=== PATIENT | female | born 1945 | race Caucasian/White ===

== ENCOUNTER 2018-09-05 15:13 | Inpatient (IN) | payer MEDICARE, MEDICAID ==
[2018-09-05 16:09] LABS: % BASOPHILS 0.4 % (0.0-2.0); % EOSINOPHILS 1.5 % (0.0-5.0); % LYMPHOCYTES 16.2 % (20.0-50.0); % MONOCYTES 6.6 % (2.0-10.0); % NEUTROPHILS 75.3 % (40.0-80.0); EOSINOPHILE ABSOLUTE 0.1 Th/cmm (0.1-0.4); HEMATOCRIT 37.1 % (41.0-60); LYMPHOCYTE ABSOLUTE 1.5 Th/cmm (1.5-3.0); MEAN CELL VOLUME 84.6 fl (81-100); MEAN CORPUSCULAR HEMOGLOBIN 27.3 pg (27.0-31.0); MEAN CORPUSCULAR HGB CONC 32.2 pg (28.0-36.0); MEAN PLATELET VOLUME 6.8 fl; MONOCYTE ABSOLUTE 0.6 Th/cmm (0.3-1.0); NEUTROPHILE ABSOLUTE 7.1 Th/cmm (1.8-8.0); PLATELET COUNT 304 Th/cmm (150-400); RED BLOOD COUNT 4.39 Mil/cmm (3.80-5.20); RED CELL DISTRIBUTION WIDTH 12.3 % (11.5-20.0); WHITE BLOOD COUNT 9.3 Th/cmm (4.8-10.8)
[2018-09-05 16:20] LABS: INR 0.93 (0.5-1.4); PROTHROMBIN TIME (TEST) 9.7 SECONDS (9.5-11.5)
[2018-09-05 16:28] LABS: ALB/GLOB RATIO 1.1 (1.0-1.8); ALKALINE PHOSPHATASE 129 U/L (34-104); ANION GAP 14.5 (7.0-16.0); BILIRUBIN,TOTAL 0.2 mg/dL (0.3-1.0); BUN - UREA NITROGEN 16 mg/dL (7-25); CALCIUM SERUM 8.9 mg/dL (8.6-10.3); CARBON DIOXIDE 26.6 mEq/L (21.0-31.0); CHLORIDE 94 mEq/L (98-107); CREATININE - SERUM 0.6 mg/dL (0.6-1.2); GLUCOSE 120 mg/dL (70-105); POTASSIUM SERUM 4.1 mEq/L (3.5-5.1); SGOT 14 U/L (13-39); SGPT/ALT 15 U/L (7-52); SODIUM SERUM 131 mEq/L (136-145); TOTAL PROTEIN,SERUM 7.5 gm/dL (6.0-8.3)
[2018-09-05] MEDS ORDERED: Haloperidol Lactate 5 mg/mL 1mL Vial IVP ONE (16:55)
[2018-09-05] MEDS ORDERED: Haloperidol Lactate 5 mg/mL 1mL Vial ONE (16:57)
[2018-09-05] MEDS ORDERED: Sodium Chloride 0.45% 500 ML IV ONE (17:25)
[2018-09-05 18:25] LABS: URINE SOURCE CATH
[2018-09-05 18:35] LABS: URINE BILIRUBIN NEGATIVE (NEGATIVE); URINE BLOOD NEGATIVE (NEGATIVE); URINE GLUCOSE (UA) NEGATIVE (NEGATIVE); URINE KETONE NEGATIVE (NEGATIVE); URINE LEUKOCYTE ESTERASE MODERATE (NEGATIVE); URINE MICROSCOPIC INDICATED? YES; URINE NITRATE POSITIVE (NEGATIVE); URINE PH 6.5 (4.6 - 8.0); URINE PROTEIN NEGATIVE (NEGATIVE); URINE UROBILINOGEN 0.2 E.U./dL (0.2 - 1.0)
[2018-09-05 18:57] LABS: URINE CLARITY CLOUDY (CLEAR); URINE COLOR YELLOW
[2018-09-05 18:59] LABS: URINE WBC 50-100 /hpf (0-5)
[2018-09-05 19:00] LABS: URINE BACTERIA MANY /hpf (NONE SEEN); URINE EPITHELIAL CELLS MODERATE /lpf (FEW)
--- NOTE | 2018-09-05 19:15 | ED Physician Chart ---
ED Chief Complaint/HPI - Patient Information Date Seen:: 09/05/18 Time Seen:: 15:44 Chief Complaint:: combative History of Present Illness:: this is a 73 yo female with a possible cva sent to the er for an evaluation for admission and verification of a stroke. Allergies:: Allergies Allergy/AdvReac Type Severity Reaction Status Date / Time No Known Allergies Allergy Verified 09/05/18 15:37 Vitals:: Vital Signs - 8 hr 09/05/18 15:38 Temp 96.8 F HR 66 RR 16 BP 163/72 O2 Sat % 96 Historian:: Medical Records Review:: Nurse's Note Reviewed, Old Chart Reviewed, Transfer documents Reviewed ED Review of Systems - Review of Systems General/Constitutional: No fever, No chills, No weight loss, No weakness, No diaphoresis, No edema, No loss of appetite, Other (this patient cannot give a review of systems.) Skin: No skin lesions, No rash, No bruising Head: No headache, No light-headedness Eyes: No loss of vision, No pain, No diplopia ENT: No earache, No nasal drainage, No sore throat, No tinnitus Neck: No neck pain, No swelling, No thyromegaly, No stiffness, No mass noted Cardio Vascular: No chest pain, No palpitations, No PND, No orthopnea, No edema Pulmonary: No SOB, No cough, No sputum, No wheezing GI: No nausea, No vomiting, No diarrhea, No pain, No melena, No hematochezia, No constipation, No hematemesis G/U: No dysuria, No frequency, No hematuria Musculoskeletal: No bone or joint pain, No back pain, No muscle pain Endocrine: No polyuria, No polydipsia Psychiatric: No prior psych history, No depression, No anxiety, No suicidal ideation Hematopoietic: No bruising, No lymphadenopathy Allergic/Immuno: No urticaria, No angioedema Neurological: No syncope, No focal symptoms, No weakness, No paresthesia, No headache, No seizure, No dizziness, No confusion, No vertigo ED Past Medical History - Past Medical History Obtainable: Yes Past Medical History: CVA/TIA, Dementia Family History: None Social History: Non Smoker, No Alcohol, No Drug Use, Care Facility Surgical History: None Psychiatricy History: Dementia Medication: Reviewed Family Medical History - Family Member Mother History Unknown: Yes ED Physical Exam - Physical Examination General/Constitutional: Awake, Well-developed, well-nourished, Alert, No distress, GCS 15, Non-toxic appearing, Ambulatory Other Gen/Cons comments:: this patient is combative and disoriented times four Head: Atraumatic Eyes: Lids, conjuctiva normal, PERRL, EOMI Skin: Nl inspection, No rash, No skin lesions, No ecchymosis, Well hydrated, No lymphadenopathy ENMT: External ears, nose nl, Nasal exam nl, Lips, teeth, gums nl Neck: Nontender, Full ROM w/o pain, No JVD, No nuchal rigidity, No bruit, No mass, No stridor Respiratory: Nl effort/Exclusion, Clear to Auscultation, No Wheeze/Rhonchi/Rales Cardio Vascular: RRR, No murmur, gallop, rubs, NL S1 S2 GI: No tenderness/rebounding/guarding, No organomegaly, No hernia, Normal BS's, Nondistended, No mass/bruits, No McBurney tenderness : No CVA tenderness Other comments:: incontinent of stool and urine Extremities: No tenderness or effusion, Full ROM, normal strength in all extremities, No edema, Normal digits & nails Neuro/Psych: Alert/oriented, DTR's symmetric, Normal sensory exam, Normal motor strength, Judgement/insight normal, Mood normal (combative and uncooperative), Normal gait, No focal deficits Misc: Normal back, No paraspinal tenderness ED Labs/Radiology/EKG Results - Lab Results Results: Laboratory Tests 09/05/18 09/05/18 09/05/18 15:40 15:40 15:40 WBC 9.3 RBC 4.39 Hgb 12.0 Hct 37.1 L MCV 84.6 MCH 27.3 MCHC Differential 32.2 RDW 12.3 Plt Count 304 MPV 6.8 Neutrophils % 75.3 Lymphocytes % 16.2 L Monocytes % 6.6 Eosinophils % 1.5 Basophils % 0.4 PT 9.7 INR 0.93 PTT (Actin FS) 28.0 Sodium 131 L Potassium 4.1 Chloride 94 L Carbon Dioxide 26.6 Anion Gap 14.5 BUN 16 Creatinine 0.6 Est GFR ( Amer) TNP Est GFR (Non-Af Amer) TNP BUN/Creatinine Ratio 26.7 Glucose 120 H Calcium 8.9 Total Bilirubin 0.2 L AST 14 ALT 15 Alkaline Phosphatase 129 H Troponin I Total Protein 7.5 Albumin 4.0 Globulin 3.5 Albumin/Globulin Ratio 1.1 TSH Urine Source Urine Color Urine Clarity Urine pH Ur Specific [place] Urine Protein Urine Glucose (UA) Urine Ketones Urine Blood Urine Nitrate Urine Bilirubin Urine Urobilinogen Ur Leukocyte Esterase Urine RBC Urine WBC Ur Epithelial Cells Urine Bacteria 09/05/18 09/05/18 09/05/18 15:40 15:40 18:00 WBC RBC Hgb Hct MCV MCH MCHC Differential RDW Plt Count MPV Neutrophils % Lymphocytes % Monocytes % Eosinophils % Basophils % PT INR PTT (Actin FS) Sodium Potassium Chloride Carbon Dioxide Anion Gap BUN Creatinine Est GFR ( Amer) Est GFR (Non-Af Amer) BUN/Creatinine Ratio Glucose Calcium Total Bilirubin AST ALT Alkaline Phosphatase Troponin I < 0.01 L Total Protein Albumin Globulin Albumin/Globulin Ratio TSH 2.01 Urine Source CATH Urine Color YELLOW Urine Clarity CLOUDY H Urine pH 6.5 Ur Specific [place] 1.015 Urine Protein NEGATIVE Urine Glucose (UA) NEGATIVE Urine Ketones NEGATIVE Urine Blood NEGATIVE Urine Nitrate POSITIVE H Urine Bilirubin NEGATIVE Urine Urobilinogen 0.2 Ur Leukocyte Esterase MODERATE H Urine RBC 2-5 Urine WBC 50-100 H Ur Epithelial Cells MODERATE Urine Bacteria MANY H - Radiology Results Results: chest x-ray = nad ED Assessment - Assessment General Assessment: urinary tract infection psychosis ED Septic Shock - . Is Septic Shock (SBP<90, OR Lactate>4 mmol\L) present?: No - <6hrs of presentation: Vital Signs: Vital Signs - 8 hr 09/05/18 15:38 Temp 96.8 F HR 66 RR 16 BP 163/72 O2 Sat % 96 ED Reassessment (Disposition) - Reassessment Reassessment Condition:: Unchanged - Diagnosis Diagnosis:: urinary tract infection psychosis - Patient Disposition Discharge/Transfer:: Acute Care w/in this hosp Admitted to:: Med/Surg Admitting Medical Physician:: John Corcoran Condition at Disposition:: Stable
[2018-09-05] MEDS ORDERED: Non-Formulary Item 1 EA (Acetaminophen [Acetaminophen Er] 650 MG) PO PRN (22:06)
[2018-09-05] MEDS ORDERED: Sodium Chloride 0.9% 1,000 ML IV SCH (22:15)
[2018-09-05] MEDS ORDERED: Magnesium Hydroxide (MOM) 30 mL UDC PO SCH (22:15)
[2018-09-05] MEDS ORDERED: cefTRIAXone 1 GM in Sodium Chloride 0.9% 50 ML IV SCH (22:15)
[2018-09-05] MEDS: Sodium Chloride 0.9% 1,000 ML IV SCH (23:19)
[2018-09-06 06:39] LABS: % BASOPHILS 0.5 % (0.0-2.0); % EOSINOPHILS 1.4 % (0.0-5.0); % LYMPHOCYTES 21.2 % (20.0-50.0); % MONOCYTES 7.6 % (2.0-10.0); % NEUTROPHILS 69.3 % (40.0-80.0); EOSINOPHILE ABSOLUTE 0.1 Th/cmm (0.1-0.4); HEMATOCRIT 35.5 % (41.0-60); HEMOGLOBIN 11.8 gm/dL (12-16); LYMPHOCYTE ABSOLUTE 1.7 Th/cmm (1.5-3.0); MEAN CELL VOLUME 85.3 fl (81-100); MEAN CORPUSCULAR HEMOGLOBIN 28.4 pg (27.0-31.0); MEAN CORPUSCULAR HGB CONC 33.3 pg (28.0-36.0); MEAN PLATELET VOLUME 6.7 fl; MONOCYTE ABSOLUTE 0.6 Th/cmm (0.3-1.0); NEUTROPHILE ABSOLUTE 5.7 Th/cmm (1.8-8.0); PLATELET COUNT 255 Th/cmm (150-400); RED BLOOD COUNT 4.16 Mil/cmm (3.80-5.20); RED CELL DISTRIBUTION WIDTH 12.1 % (11.5-20.0); WHITE BLOOD COUNT 8.1 Th/cmm (4.8-10.8)
[2018-09-06 06:55] LABS: ANION GAP 12.2 (7.0-16.0); BUN - UREA NITROGEN 11 mg/dL (7-25); CARBON DIOXIDE 24.9 mEq/L (21.0-31.0); CHLORIDE 98 mEq/L (98-107); GLUCOSE 99 mg/dL (70-105); POTASSIUM SERUM 4.1 mEq/L (3.5-5.1); SODIUM SERUM 131 mEq/L (136-145)
[2018-09-06 06:56] LABS: ALB/GLOB RATIO 1.2 (1.0-1.8); ALBUMIN 3.6 gm/dL (3.7-5.3); ALKALINE PHOSPHATASE 124 U/L (34-104); BILIRUBIN,TOTAL 0.2 mg/dL (0.3-1.0); CALCIUM SERUM 8.4 mg/dL (8.6-10.3); CREATININE - SERUM 0.5 mg/dL (0.6-1.2); SGOT 12 U/L (13-39); SGPT/ALT 12 U/L (7-52); TOTAL PROTEIN,SERUM 6.7 gm/dL (6.0-8.3)
--- NOTE | 2018-09-06 08:21 | Diagnostic Imaging Report ---
CT scan of the brain without intravenous contrast HISTORY: Stroke, CVA Total DLP equals 803 CTDI equals 41.1 Axial sections were obtained from the base of the skull to the vertex. There is prominence/enlargement of the ventricular system size. Associated enlargement of cerebral sulci and subarachnoid cisterns. Findings are consistent with changes of generalized cerebral atrophy. No acute parenchymal abnormalities. No acute cerebral hemorrhage. Hypodensity is seen within the supratentorial white matter regions without mass effect. The findings may be associated with chronic small vessel ischemic disease. No extra-axial masses or abnormal fluid collections. Fluid evident within the left mastoid air cells consistent with inflammatory change. Mild mucosal thickening seen within the left maxillary sinus. There is marked deviation of the nasal septum to the right side. IMPRESSION: 1. No acute abnormalities 2. Cerebral atrophy 3. Supratentorial white matter changes that may reflect chronic small vessel ischemic disease 4. Marked deviation of the nasal septum 5. Fluid within the left mastoid air cell regions consistent with inflammatory change. 6. Mild mucosal thickening within the left maxillary sinus
--- NOTE | 2018-09-06 08:27 | Diagnostic Imaging Report ---
Portable chest x-ray HISTORY: Pain The overall heart size is difficult to assess with portable technique in a poor inspiration. No acute focal pulmonary processes. No hilar or mediastinal abnormalities. Surgical changes noted about the right humeral shaft. IMPRESSION: 1. No acute pulmonary processes
[2018-09-06] MEDS ORDERED: CALCIUM CITRATE PO SCH (09:00)
[2018-09-06] MEDS ORDERED: VITAMIN D3 PO SCH (09:00)
[2018-09-06] MEDS ORDERED: [UNRECOGNIZED DRUG - OTHER] PO SCH (09:00)
[2018-09-06] MEDS: Multivitamin w/ Minerals Tab PO SCH (09:26)
[2018-09-06] MEDS: Calcium Carb/Vit D 500 mg/200 U Tab PO SCH ×3 (09:28→20:19)
[2018-09-06] MEDS: Sodium Chloride 0.9% 1,000 ML IV SCH (09:38)
--- NOTE | 2018-09-06 15:20 | History and Physical ---
History of Present Illness - HPI Chief Complaint: Increased in agitation HPI: Patient was send for evaluation of increased in agitation. During ER evaluation was found UTI . Vital Signs: Last Vital Signs Temp 96.8 F 09/06/18 12:00 Pulse 68 09/06/18 12:00 Resp 18 09/06/18 12:00 BP 135/84 09/06/18 12:00 Pulse Ox 97 09/06/18 12:00 Past Medical History Cardiovascular: Report: CAD Pulmonary: Report: No Pertinent Hx [employer]: Report: Dementia, TIA, Other (MR, CP) GI: Report: No Pertinent Hx Psych: Report: Other (MR) Musculoskeletal: Report: Muscle Atrophy, Other (Non ambulatory) Rheumatologic: Report: No pertinent Hx Infectious Disease: Report: No Pertinent Hx Renal/: Report: No Pertinent Hx Endocrine: Report: No Pertinent Hx Dermatology: Report: No Pertinent Hx Family Medical History - Family Member Mother History Unknown: Yes Ethnicity: Non- Living Status: Unknown Social History Smoke: No Alcohol: None Drugs: None Lives: Custodial Domestic Violence: Negative - Medications Home Medications: Home Medication Medication Instructions Recorded Type Acetaminophen [Acetaminophen ER] 650 mg PO Q4H PRN 09/05/18 History Bisacodyl [Dulcolax 10 Mg Supp] 10 mg RC Q96H PRN 09/05/18 History Calcium Citrate/Vitamin D3 1 tab PO TID 09/05/18 History [Calcium Citrate-Vit D3 Caplet] Carbamazepine 200 mg PO BID 09/05/18 History Lisinopril [Zestril] 2.5 mg PO BID 09/05/18 History Magnesium Hydroxide [Milk of 30 ml PO Q72H 09/05/18 History Magnesia] Metoprolol Succinate 12.5 mg PO DAILY 09/05/18 History Multivit with Minerals/Lutein 1 tab PO DAILY 09/05/18 History [Theratrum Complete 50 Plus] Rosuvastatin Calcium [Crestor] 10 mg PO HS 09/05/18 History amLODIPine Besylate [Norvasc] 5 mg PO BID 09/05/18 History - Allergies Allergies/Adverse Reactions: Allergies Allergy/AdvReac Type Severity Reaction Status Date / Time No Known Allergies Allergy Verified 09/05/18 15:37 Review of Systems - Review of Systems Constitutional: Report: No Significant Eyes: Report: No Significant ENT: Report: No Significant Respiratory: Report: No Significant Cardiovascular: Report: No Significant Gastrointestinal: Report: No Significant Genitourinary: Report: No Significant Musculoskeletal: Report: No Significant Skin: Report: No Significant Neurological: Report: Weakness, Confusion Physical Exam - Physical Exam HEENT: Report: Ears Nose Throat within normal limits Neck: Report: Within normal limits Cardiovascular Systems: Report: Regular, Rate and Rhythm Respiratory: Report: Breath Sounds are within normal limits Abdomen: Report: Non-tender to palpation Back: Report: Inspection of back is within normal limits. Extremities: Report: Non-tender to palpation., Other (Non ambulatory) Skin: Report: Color of skin is within normal limits Neuro/Psych: Report: Disoriented to name time or place, Other (Agitated at moments) - Lab Results All Lab Results last 24 hours: Laboratory Results - last 24 hr 09/05/18 09/05/18 09/05/18 15:40 15:40 15:40 WBC 9.3 RBC 4.39 Hgb 12.0 Hct 37.1 L MCV 84.6 MCH 27.3 MCHC Differential 32.2 RDW 12.3 Plt Count 304 MPV 6.8 Neutrophils % 75.3 Lymphocytes % 16.2 L Monocytes % 6.6 Eosinophils % 1.5 Basophils % 0.4 PT 9.7 INR 0.93 PTT (Actin FS) 28.0 Sodium 131 L Potassium 4.1 Chloride 94 L Carbon Dioxide 26.6 Anion Gap 14.5 BUN 16 Creatinine 0.6 Est GFR ( Amer) TNP Est GFR (Non-Af Amer) TNP BUN/Creatinine Ratio 26.7 Glucose 120 H Calcium 8.9 Total Bilirubin 0.2 L AST 14 ALT 15 Alkaline Phosphatase 129 H Troponin I Total Protein 7.5 Albumin 4.0 Globulin 3.5 Albumin/Globulin Ratio 1.1 TSH Urine Source Urine Color Urine Clarity Urine pH Ur Specific [place] Urine Protein Urine Glucose (UA) Urine Ketones Urine Blood Urine Nitrate Urine Bilirubin Urine Urobilinogen Ur Leukocyte Esterase Urine RBC Urine WBC Ur Epithelial Cells Urine Bacteria 09/05/18 09/05/18 09/05/18 15:40 15:40 18:00 WBC RBC Hgb Hct MCV MCH MCHC Differential RDW Plt Count MPV Neutrophils % Lymphocytes % Monocytes % Eosinophils % Basophils % PT INR PTT (Actin FS) Sodium Potassium Chloride Carbon Dioxide Anion Gap BUN Creatinine Est GFR ( Amer) Est GFR (Non-Af Amer) BUN/Creatinine Ratio Glucose Calcium Total Bilirubin AST ALT Alkaline Phosphatase Troponin I < 0.01 L Total Protein Albumin Globulin Albumin/Globulin Ratio TSH 2.01 Urine Source CATH Urine Color YELLOW Urine Clarity CLOUDY H Urine pH 6.5 Ur Specific [place] 1.015 Urine Protein NEGATIVE Urine Glucose (UA) NEGATIVE Urine Ketones NEGATIVE Urine Blood NEGATIVE Urine Nitrate POSITIVE H Urine Bilirubin NEGATIVE Urine Urobilinogen 0.2 Ur Leukocyte Esterase MODERATE H Urine RBC 2-5 Urine WBC 50-100 H Ur Epithelial Cells MODERATE Urine Bacteria MANY H 09/06/18 09/06/18 05:35 05:35 WBC 8.1 RBC 4.16 Hgb 11.8 L Hct 35.5 L MCV 85.3 MCH 28.4 MCHC Differential 33.3 RDW 12.1 Plt Count 255 MPV 6.7 Neutrophils % 69.3 Lymphocytes % 21.2 Monocytes % 7.6 Eosinophils % 1.4 Basophils % 0.5 PT INR PTT (Actin FS) Sodium 131 L Potassium 4.1 Chloride 98 Carbon Dioxide 24.9 Anion Gap 12.2 BUN 11 Creatinine 0.5 L Est GFR ( Amer) TNP Est GFR (Non-Af Amer) TNP BUN/Creatinine Ratio 22.0 Glucose 99 Calcium 8.4 L Total Bilirubin 0.2 L AST 12 L ALT 12 Alkaline Phosphatase 124 H Troponin I Total Protein 6.7 Albumin 3.6 L Globulin 3.1 Albumin/Globulin Ratio 1.2 TSH Urine Source Urine Color Urine Clarity Urine pH Ur Specific [place] Urine Protein Urine Glucose (UA) Urine Ketones Urine Blood Urine Nitrate Urine Bilirubin Urine Urobilinogen Ur Leukocyte Esterase Urine RBC Urine WBC Ur Epithelial Cells Urine Bacteria - Assessment Assessment: Patient is awake, alert, in no acute distress. DX: UTI, Mentally disable, Dementia, CP, Non ambulatory, HTN - Plan Plan: Patient is in IV NS, IV AB, continue with SNF meds. Will continue to monitor.
[2018-09-06] MEDS: Atorvastatin Calcium 10 MG TAB PO SCH (20:19)
[2018-09-06] MEDS ORDERED: ROSUVASTATIN CALCIUM 10 MG PO SCH (21:00)
[2018-09-07 05:45] LABS: % BASOPHILS 0.5 % (0.0-2.0); % EOSINOPHILS 1.3 % (0.0-5.0); % LYMPHOCYTES 19.3 % (20.0-50.0); % MONOCYTES 6.7 % (2.0-10.0); % NEUTROPHILS 72.2 % (40.0-80.0); EOSINOPHILE ABSOLUTE 0.1 Th/cmm (0.1-0.4); HEMATOCRIT 33.9 % (41.0-60); HEMOGLOBIN 11.1 gm/dL (12-16); LYMPHOCYTE ABSOLUTE 1.5 Th/cmm (1.5-3.0); MEAN CELL VOLUME 84.1 fl (81-100); MEAN CORPUSCULAR HEMOGLOBIN 27.6 pg (27.0-31.0); MEAN CORPUSCULAR HGB CONC 32.8 pg (28.0-36.0); MEAN PLATELET VOLUME 6.5 fl; MONOCYTE ABSOLUTE 0.5 Th/cmm (0.3-1.0); NEUTROPHILE ABSOLUTE 5.8 Th/cmm (1.8-8.0); PLATELET COUNT 290 Th/cmm (150-400); RED BLOOD COUNT 4.03 Mil/cmm (3.80-5.20); RED CELL DISTRIBUTION WIDTH 12.3 % (11.5-20.0); WHITE BLOOD COUNT 7.9 Th/cmm (4.8-10.8)
[2018-09-07 06:12] LABS: ALB/GLOB RATIO 1.2 (1.0-1.8); ALBUMIN 3.5 gm/dL (3.7-5.3); ALKALINE PHOSPHATASE 115 U/L (34-104); ANION GAP 10.7 (7.0-16.0); BILIRUBIN,TOTAL 0.2 mg/dL (0.3-1.0); BUN - UREA NITROGEN 11 mg/dL (7-25); CALCIUM SERUM 8.5 mg/dL (8.6-10.3); CARBON DIOXIDE 26.1 mEq/L (21.0-31.0); CHLORIDE 97 mEq/L (98-107); CREATININE - SERUM 0.6 mg/dL (0.6-1.2); GLUCOSE 105 mg/dL (70-105); POTASSIUM SERUM 3.8 mEq/L (3.5-5.1); SGOT 13 U/L (13-39); SGPT/ALT 12 U/L (7-52); SODIUM SERUM 130 mEq/L (136-145); TOTAL PROTEIN,SERUM 6.5 gm/dL (6.0-8.3)
[2018-09-07] MEDS: Multivitamin w/ Minerals Tab PO SCH (09:18)
[2018-09-07] MEDS: Calcium Carb/Vit D 500 mg/200 U Tab PO SCH ×3 (09:18→20:44)
--- NOTE | 2018-09-07 12:25 | General Progress Note ---
Subjective - Review of Systems Service Date: 09/07/18 Subjective: Patient non verbal Objective - Results Result Diagrams: 09/07/18 05:25 09/07/18 05:25 Recent Labs: Laboratory Last Values WBC 7.9 Th/cmm (4.8-10.8) 09/07/18 05:25 RBC 4.03 Mil/cmm (3.80-5.20) 09/07/18 05:25 Hgb 11.1 gm/dL (12-16) L 09/07/18 05:25 Hct 33.9 % (41.0-60) L 09/07/18 05:25 MCV 84.1 fl (81-100) 09/07/18 05:25 MCH 27.6 pg (27.0-31.0) 09/07/18 05:25 MCHC Differential 32.8 pg (28.0-36.0) 09/07/18 05:25 RDW 12.3 % (11.5-20.0) 09/07/18 05:25 Plt Count 290 Th/cmm (150-400) 09/07/18 05:25 MPV 6.5 fl 09/07/18 05:25 Neutrophils % 72.2 % (40.0-80.0) 09/07/18 05:25 Lymphocytes % 19.3 % (20.0-50.0) L 09/07/18 05:25 Monocytes % 6.7 % (2.0-10.0) 09/07/18 05:25 Eosinophils % 1.3 % (0.0-5.0) 09/07/18 05:25 Basophils % 0.5 % (0.0-2.0) 09/07/18 05:25 PT 9.7 SECONDS (9.5-11.5) 09/05/18 15:40 INR 0.93 (0.5-1.4) 09/05/18 15:40 PTT (Actin FS) 28.0 SECONDS (26.0-38.0) 09/05/18 15:40 Sodium 130 mEq/L (136-145) L 09/07/18 05:25 Potassium 3.8 mEq/L (3.5-5.1) 09/07/18 05:25 Chloride 97 mEq/L (98-107) L 09/07/18 05:25 Carbon Dioxide 26.1 mEq/L (21.0-31.0) 09/07/18 05:25 Anion Gap 10.7 (7.0-16.0) 09/07/18 05:25 BUN 11 mg/dL (7-25) 09/07/18 05:25 Creatinine 0.6 mg/dL (0.6-1.2) 09/07/18 05:25 Est GFR ( Amer) TNP 09/07/18 05:25 Est GFR (Non-Af Amer) TNP 09/07/18 05:25 BUN/Creatinine Ratio 18.3 09/07/18 05:25 Glucose 105 mg/dL (70-105) 09/07/18 05:25 Calcium 8.5 mg/dL (8.6-10.3) L 09/07/18 05:25 Total Bilirubin 0.2 mg/dL (0.3-1.0) L 09/07/18 05:25 AST 13 U/L (13-39) 09/07/18 05:25 ALT 12 U/L (7-52) 09/07/18 05:25 Alkaline Phosphatase 115 U/L (34-104) H 09/07/18 05:25 Troponin I < 0.01 ng/mL (0.01-0.05) L 09/05/18 15:40 Total Protein 6.5 gm/dL (6.0-8.3) 09/07/18 05:25 Albumin 3.5 gm/dL (3.7-5.3) L 09/07/18 05:25 Globulin 3.0 gm/dL 09/07/18 05:25 Albumin/Globulin Ratio 1.2 (1.0-1.8) 09/07/18 05:25 TSH 2.01 uIU/ml (0.34-5.60) 09/05/18 15:40 Urine Source CATH 09/05/18 18:00 Urine Color YELLOW 09/05/18 18:00 Urine Clarity CLOUDY (CLEAR) H 09/05/18 18:00 Urine pH 6.5 (4.6 - 8.0) 09/05/18 18:00 Ur Specific [place] 1.015 (1.005-1.030) 09/05/18 18:00 Urine Protein NEGATIVE mg/dL (NEGATIVE) 09/05/18 18:00 Urine Glucose (UA) NEGATIVE mg/dL (NEGATIVE) 09/05/18 18:00 Urine Ketones NEGATIVE mg/dL (NEGATIVE) 09/05/18 18:00 Urine Blood NEGATIVE (NEGATIVE) 09/05/18 18:00 Urine Nitrate POSITIVE (NEGATIVE) H 09/05/18 18:00 Urine Bilirubin NEGATIVE (NEGATIVE) 09/05/18 18:00 Urine Urobilinogen 0.2 E.U./dL (0.2 - 1.0) 09/05/18 18:00 Ur Leukocyte Esterase MODERATE (NEGATIVE) H 09/05/18 18:00 Urine RBC 2-5 /hpf (0-5) 09/05/18 18:00 Urine WBC 50-100 /hpf (0-5) H 09/05/18 18:00 Ur Epithelial Cells MODERATE /lpf (FEW) 09/05/18 18:00 Urine Bacteria MANY /hpf (NONE SEEN) H 09/05/18 18:00 - Physical Exam Vitals and I&O: Vital Signs Temp 97.4 F 09/07/18 08:00 Pulse 76 09/07/18 09:18 Resp 18 09/07/18 08:00 BP 155/77 09/07/18 09:18 Pulse Ox 97 09/07/18 08:00 Intake & Output 09/06/18 09/07/18 09/07/18 18:59 06:59 18:59 Intake Total 928.5 120 Output Total 3 Balance 928.5 117 Weight (lbs) 63.503 kg Intake: Intake, IV Amount 928.5 Sodium Chloride 0.9% 1, 928.5 000 ml @ 90 mls/hr IV . Q11H7M [facility] Rx#:[id number] Oral 120 Output: Urine 3 Other: Weight Source Estimated Active Medications: Current Medications Acetaminophen (Tylenol) 650 mg PO Q6H PRN PRN Reason: PAIN/FEVER > 100F Stop: 11/04/18 22:18 Amlodipine Besylate (Norvasc) 5 mg PO BID [facility] Stop: 11/05/18 08:59 Last Admin: 09/07/18 09:17 Dose: 5 mg Atorvastatin Calcium (Lipitor) 10 mg PO HS [facility] Stop: 11/05/18 20:59 Last Admin: 09/06/18 20:19 Dose: 10 mg Bisacodyl (Dulcolax 10 Mg Supp) 10 mg RC Q96H PRN PRN Reason: Constipation Stop: 11/04/18 22:05 Calcium/Vitamin D (Oscal W/Vitamin D) 1 tab PO TID [facility] Stop: 11/05/18 08:59 Last Admin: 09/07/18 09:18 Dose: 1 tab Carbamazepine (Tegretol) 200 mg PO BID [facility]; Protocol Stop: 11/05/18 08:59 Last Admin: 09/07/18 09:19 Dose: 200 mg Sodium Chloride (Nacl 0.9%) 1,000 mls @ 90 mls/hr IV .Q11H7M [facility] Stop: 11/04/18 22:28 Last Admin: 09/06/18 09:38 Dose: 90 mls/hr Ceftriaxone Sodium 1 gm/ (Dextrose) 50 mls @ 100 mls/hr IV Q24H [facility] Stop: 11/05/18 18:59 Last Admin: 09/06/18 18:52 Dose: 100 mls/hr Lisinopril (Zestril) 2.5 mg PO BID [facility] Stop: 11/05/18 08:59 Last Admin: 09/07/18 09:18 Dose: 2.5 mg Lorazepam (Ativan) 1 mg IM Q4HR PRN; Protocol PRN Reason: Agitation Stop: 11/05/18 20:50 Last Admin: 09/07/18 02:22 Dose: 1 mg Magnesium Hydroxide (Milk Of Magnesia) 30 ml PO Q72H [facility] Stop: 11/04/18 22:14 Last Admin: 09/05/18 23:19 Dose: Not Given Metoprolol Tartrate (Lopressor) 12.5 mg PO DAILY [facility] Stop: 11/05/18 08:59 Last Admin: 09/07/18 09:18 Dose: 12.5 mg General: Other (Slleping but arousable) HEENT: Atraumatic Neck: Supple Cardiovascular: Regular rate Lungs: Clear to auscultation Abdomen: Bowel sounds Extremities: Other (No edema) Neurological: Other (Non ambulatory) Skin: Other (Warm and dry) Psych/Mental Status: Other (Confused, not oriented.) Assessment/Plan - Assessment Assessment: Patient is awake, alert, in no acute distress. DX: UTI, Mentally disable, Dementia, CP, Non ambulatory, HTN - Plan Plan: Patient is in IV NS, IV AB, continue with SNF meds. Will continue to monitor.
--- NOTE | 2018-09-07 13:27 | Consultation ---
DATE OF CONSULTATION: 09/07/2018 REQUESTING PHYSICIAN: Dr. Parikh. REASON FOR CONSULTATION: Agitation and psychosis. HISTORY OF PRESENT ILLNESS: This patient is a 73-year-old woman, resident of a long-term facility. Information obtained by directly interviewing the patient as well as reviewing the admission papers and talking to the staff members. During the evaluation, the patient is reported to have been very agitated and trying to pull the IV lines out. The patient is not saying much of anything except saying that "I am okay." The patient has no insight into her illness. Coping skills are noted to be extremely poor. The patient is getting easily irritable when I am trying to get some information from the patient. The patient has been getting easily frustrated. The patient, however, has not been able to provide much of any information. Short and skilled nursing memory noted to be very poor. The patient is very paranoid and the patient is moving from side to side, but is not providing much of information. PAST PSYCHIATRIC HISTORY: Details about prior psychiatric hospitalizations are not known. MEDICAL HISTORY: The patient is admitted over here for UTI. The patient has a history of hypercholesterolemia, hypertension. SUBSTANCE ABUSE HISTORY: None. SOCIAL HISTORY: The patient is a resident of the long-term facility. MENTAL STATUS EXAMINATION: The patient is a 73-year-old, looking her stated age, superficially cooperative. Eye contact is poor. Mood is noted to be irritable. Affect is constricted. Insight and judgment at this time are noted to be still impaired. Impulse control is noted to be limited. Coping skills are also noted to be fair. The patient has been having difficult time to cope with the stress. The patient has paranoia. The patient's short and long-term ____ are noted to be very poor. The patient is getting easily agitated and trying to pull the IV lines out. DIAGNOSTIC IMPRESSION: AXIS I: A. Psychotic disorder, not otherwise specified. B. Dementia and behavioral change, secondary trait. PLAN: To use the Haldol on a p.r.n. basis to contain the aggressive behavior and agitation and follow the patient with the supportive therapy. JOB# [id number]
[2018-09-07] MEDS: Sodium Chloride 0.9% 1,000 ML IV SCH (14:14)
[2018-09-07] MEDS: Atorvastatin Calcium 10 MG TAB PO SCH (20:44)
[2018-09-08 06:43] LABS: % BASOPHILS 0.4 % (0.0-2.0); % EOSINOPHILS 1.4 % (0.0-5.0); % LYMPHOCYTES 19.6 % (20.0-50.0); % MONOCYTES 6.6 % (2.0-10.0); EOSINOPHILE ABSOLUTE 0.1 Th/cmm (0.1-0.4); HEMATOCRIT 33.6 % (41.0-60); HEMOGLOBIN 11.4 gm/dL (12-16); LYMPHOCYTE ABSOLUTE 1.7 Th/cmm (1.5-3.0); MEAN CELL VOLUME 83.9 fl (81-100); MEAN CORPUSCULAR HEMOGLOBIN 28.3 pg (27.0-31.0); MEAN CORPUSCULAR HGB CONC 33.8 pg (28.0-36.0); MEAN PLATELET VOLUME 6.4 fl; MONOCYTE ABSOLUTE 0.6 Th/cmm (0.3-1.0); NEUTROPHILE ABSOLUTE 6.2 Th/cmm (1.8-8.0); PLATELET COUNT 279 Th/cmm (150-400); RED BLOOD COUNT 4.01 Mil/cmm (3.80-5.20); WHITE BLOOD COUNT 8.6 Th/cmm (4.8-10.8)
[2018-09-08 06:58] LABS: ALB/GLOB RATIO 1.2 (1.0-1.8); ALBUMIN 3.7 gm/dL (3.7-5.3); ALKALINE PHOSPHATASE 116 U/L (34-104); ANION GAP 13.2 (7.0-16.0); BILIRUBIN,TOTAL 0.2 mg/dL (0.3-1.0); BUN - UREA NITROGEN 8 mg/dL (7-25); CALCIUM SERUM 8.5 mg/dL (8.6-10.3); CARBON DIOXIDE 24.7 mEq/L (21.0-31.0); CHLORIDE 96 mEq/L (98-107); CREATININE - SERUM 0.6 mg/dL (0.6-1.2); GLUCOSE 106 mg/dL (70-105); POTASSIUM SERUM 3.9 mEq/L (3.5-5.1); SGOT 16 U/L (13-39); SGPT/ALT 14 U/L (7-52); SODIUM SERUM 130 mEq/L (136-145); TOTAL PROTEIN,SERUM 6.8 gm/dL (6.0-8.3)
[2018-09-08] MEDS: Multivitamin w/ Minerals Tab PO SCH (08:35)
[2018-09-08] MEDS: Calcium Carb/Vit D 500 mg/200 U Tab PO SCH ×2 (08:35→13:06)
--- NOTE | 2018-09-08 08:46 | Discharge Summary ---
General Discharge Summary - Discharge Summary Admitting Diagnosis: UTI, HTN, Mentally disable, CP, Non ambulatory, Dementia Discharge Date: 09/08/18 Discharge Diagnosis: UTI, Mentally disable, CP, HTN, Anemia, Non ambulatory Laboratory Findings: Laboratory Results - last 24 hr 09/08/18 09/08/18 06:20 06:20 WBC 8.6 RBC 4.01 Hgb 11.4 L Hct 33.6 L MCV 83.9 MCH 28.3 MCHC Differential 33.8 RDW 12.0 Plt Count 279 MPV 6.4 Neutrophils % 72.0 Lymphocytes % 19.6 L Monocytes % 6.6 Eosinophils % 1.4 Basophils % 0.4 Sodium 130 L Potassium 3.9 Chloride 96 L Carbon Dioxide 24.7 Anion Gap 13.2 BUN 8 Creatinine 0.6 Est GFR ( Amer) TNP Est GFR (Non-Af Amer) TNP BUN/Creatinine Ratio 13.3 Glucose 106 H Calcium 8.5 L Total Bilirubin 0.2 L AST 16 ALT 14 Alkaline Phosphatase 116 H Total Protein 6.8 Albumin 3.7 Globulin 3.1 Albumin/Globulin Ratio 1.2 Hospital Course: Patient respond to treatment, she become calm and UTI was resolved. Treatment: Patient was started in IV NS, IV AB, continue with SNF meds, Follow by Psychiatry. Condition at Discharge: Stable Disposition: Discharge/Transfered to SNF Home Medications: Home Medication Medication Instructions Recorded Type Acetaminophen [Acetaminophen ER] 650 mg PO Q4H PRN 09/05/18 History Bisacodyl [Dulcolax 10 Mg Supp] 10 mg RC Q96H PRN 09/05/18 History Calcium Citrate/Vitamin D3 1 tab PO TID 09/05/18 History [Calcium Citrate-Vit D3 Caplet] Carbamazepine 200 mg PO BID 09/05/18 History Lisinopril [Zestril] 2.5 mg PO BID 09/05/18 History Magnesium Hydroxide [Milk of 30 ml PO Q72H 09/05/18 History Magnesia] Metoprolol Succinate 12.5 mg PO DAILY 09/05/18 History Multivit with Minerals/Lutein 1 tab PO DAILY 09/05/18 History [Theratrum Complete 50 Plus] Rosuvastatin Calcium [Crestor] 10 mg PO HS 09/05/18 History amLODIPine Besylate [Norvasc] 5 mg PO BID 04/26/19 History Inpatient Medications: Current Medications Acetaminophen (Tylenol) 650 mg PO Q6H PRN PRN Reason: PAIN/FEVER > 100F Stop: 11/04/18 22:18 Amlodipine Besylate (Norvasc) 5 mg PO BID [facility] Stop: 11/05/18 08:59 Last Admin: 09/08/18 08:36 Dose: Not Given Atorvastatin Calcium (Lipitor) 10 mg PO HS [facility] Stop: 11/05/18 20:59 Last Admin: 09/07/18 20:44 Dose: 10 mg Bisacodyl (Dulcolax 10 Mg Supp) 10 mg RC Q96H PRN PRN Reason: Constipation Stop: 11/04/18 22:05 Calcium/Vitamin D (Oscal W/Vitamin D) 1 tab PO TID [facility] Stop: 11/05/18 08:59 Last Admin: 09/08/18 08:35 Dose: 1 tab Carbamazepine (Tegretol) 200 mg PO BID [facility]; Protocol Stop: 11/05/18 08:59 Last Admin: 09/08/18 08:35 Dose: 200 mg Haloperidol (Haldol) 1 mg PO BID PRN; Protocol PRN Reason: Agitation Stop: 11/06/18 16:59 Sodium Chloride (Nacl 0.9%) 1,000 mls @ 90 mls/hr IV .[id number] [facility] Stop: 11/04/18 22:28 Last Admin: 09/07/18 14:14 Dose: 90 mls/hr Ceftriaxone Sodium 1 gm/ (Dextrose) 50 mls @ 100 mls/hr IV Q24H [facility] Stop: 11/05/18 18:59 Last Infusion: 09/07/18 18:25 Dose: 0 mls/hr Lisinopril (Zestril) 2.5 mg PO BID [facility] Stop: 11/05/18 08:59 Last Admin: 09/08/18 08:37 Dose: Not Given Lorazepam (Ativan) 1 mg IM Q4HR PRN; Protocol PRN Reason: Agitation Stop: 11/05/18 20:50 Last Admin: 09/07/18 02:22 Dose: 1 mg Magnesium Hydroxide (Milk Of Magnesia) 30 ml PO Q72H [facility] Stop: 11/04/18 22:14 Last Admin: 09/05/18 23:19 Dose: Not Given Metoprolol Tartrate (Lopressor) 12.5 mg PO DAILY [facility] Stop: 11/05/18 08:59 Last Admin: 09/08/18 08:37 Dose: Not Given Discharge Diet: 2 Gram Sodium (PCP) Consults and Follow-Up: Albaro Parikh [Primary Care Provider] -
[2018-09-08] MEDS ORDERED: Haloperidol Lactate Oral sol. 2 mg/mL Udc PO PRN (10:30)
== END 2018-09-08 17:35 | DRG 689 ==
LOC: ER 15:13 → MSI 20:20
PROVIDERS: ADMIT General Practice; ATTEND General Practice
DX: N39.0 Urinary tract infection, site not specified (principal); R53.2 Functional quadriplegia; F03.91 Unspecified dementia, unspecified severity, with behavioral disturbance; I10 Essential (primary) hypertension; F29 Unspecified psychosis not due to a substance or known physiological condition; I25.10 Atherosclerotic heart disease of native coronary artery without angina pectoris; E78.00 Pure hypercholesterolemia, unspecified; D64.9 Anemia, unspecified; Z86.73 Personal history of transient ischemic attack (TIA), and cerebral infarction without residual deficits
CPT/HCPCS: 36415-UA; 70450-TC; 71045-TC; 80053-TC; 81001-TC; 84443-TC; 84484-TC; 85025-TC; 85610-TC; 85730-TC; 87086-90; 93005; 96374; 96375; J0696; J1630; J2060; J7030; Z7610